=== PATIENT | female | born 1970 | race Caucasian/White ===

== ENCOUNTER 2018-10-06 15:38 | Emergency (ER) | payer MEDICAID ==
[2018-10-06] MEDS: HYDROCODONE/APAP (5/325) TAB PO (16:15)
[2018-10-06] MEDS: ONDANSETRON (ODT) 4 MG TAB ODT (16:15)
[2018-10-06] MEDS: KETOROLAC 30 MG INJ IM (16:16)
== END 2018-10-06 17:15 | disposition home or self-care (01) ==
LOC: FTE 15:38
DX: M54.2 Cervicalgia (principal)
CPT/HCPCS: 72040; 96372; 99284-25